=== PATIENT | male | born 1970 | race Caucasian/White ===

== ENCOUNTER 2020-02-01 19:49 | Emergency (ER) | payer OTHER ==
[~2020-02-01] VITALS: Ht 167.6 cm; Wt 90.9 kg
[2020-02-01 21:03] VITALS: BP 113/75
== END 2020-02-01 21:05 | disposition home or self-care (01) ==
LOC: ER 19:49
DX: L02.416 Cutaneous abscess of left lower limb (principal); R11.0 Nausea; R50.9 Fever, unspecified
CPT/HCPCS: 82948; 99281; 99282